=== PATIENT | male | born 1970 | race Caucasian/White ===

== ENCOUNTER → 2017-09-18 | Emergency (ER) | payer OTHER ==
[~2017-09-18] VITALS: Ht 170.2 cm; Wt 84.0 kg
[~2017-09-18] MED LIST: folic acid 1mg/0.2ml inj IV ONE; normal saline 1000ML IV soln IVB ONE; thiamine 100mg/ml 2ml inj. IV ONE
[2017-09-18 11:43] VITALS: BP 138/92
[2017-09-18 12:21] LABS: BASOPHILS # (AUTO) 0.1 X10'3 (0-0.2); EOSINOPHILS # (AUTO) 0.1 X10'3 (0-0.9); HEMATOCRIT 38.4 % (42.0-52.0); LYMPHOCYTES # (AUTO) 1.1 X10'3 (1.1-4.8); LYMPHOCYTES % (AUTO) 13.8 % (21-51); MEAN CORPUSCULAR HEMOGLOBIN 32.5 PG (27.0-31.0); MEAN CORPUSCULAR HGB CONC 33.9 % (33.0-36.5); MEAN CORPUSCULAR VOLUME 95.9 FL (78-98); MEAN PLATELET VOLUME 5.8 FL (7.4-10.4); MONOCYTES % (AUTO) 12.9 % (2-12); NEUTROPHILS # (AUTO) 5.6 X10'3 (1.8-7.7); NEUTROPHILS % (AUTO) 71.3 % (42-75); PLATELET COUNT 174 X10'3 (140-440); RED CELL DISTRIBUTION WIDTH 13.9 % (11.5-14.5); WHITE BLOOD COUNT 7.8 X10'3 (4.5-11.0)
[2017-09-18 12:30] LABS: INR 1.1 INR; PROTHROMBIN TIME 10.9 SECONDS (9.0-12.0)
[2017-09-18 12:35] LABS: ALANINE AMINOTRANSFERASE 14 U/L (12-78); ALBUMIN 3.3 G/DL (3.4-5.0); ALBUMIN/GLOBULIN RATIO 0.5 (1.1-1.5); ALKALINE PHOSPHATASE 75 IU/L (46-116); ANION GAP 9 (8-16); ASPARTATE AMINO TRANSFERASE 62 U/L (10-37); BILIRUBIN,TOTAL 0.3 MG/DL (0.1-1.0); BLOOD UREA NITROGEN 2 MG/DL (7-18); BUN/CREATININE RATIO 2.9 (5.4-32.0); CALCIUM 8.3 MG/DL (8.5-10.1); CHLORIDE 91 MMOL/L (99-107); GLUCOSE 116 MG/DL (70-104); POTASSIUM 4.4 MMOL/L (3.5-5.1); SODIUM 129 MMOL/L (135-145); TOTAL CARBON DIOXIDE 29.4 MMOL/L (24-32); TOTAL PROTEIN 9.5 G/DL (6.4-8.2); eGFR > 90 ML/MIN
[2017-09-18 12:36] LABS: ETHANOL 0.443 GM/DL (0.0-0.010)
[2017-09-18 12:39] LABS: CLARITY,URINE Clear (Clear); COLOR,URINE Yellow (Yellow); GLUCOSE, URINE Negative (Neg); KETONES,URINE Negative (Neg); LEUKOCYTE ESTERASE ,URINE Negative (Neg); NITRITES, URINE Negative (Neg); OCCULT BLOOD,URINE Trace (Neg); PROTEIN,URINE 30 mg/dl (Neg)
[2017-09-18 12:44] LABS: UA COLLECTION TYPE CLN CATCH MIDSTREAM
[2017-09-18 12:45] LABS: BACTERIA,URINE NONE SEEN /HPF (Neg); MUCUS STRANDS NONE SEEN /LPF (Neg); RBC,URINE NONE SEEN /HPF (0-2); SQUAMOUS EPITHELIAL CELL,UR FEW /LPF (FEW); WBC,URINE NONE SEEN /HPF (0-4)
[2017-09-18 12:50] LABS: URINE AMPHETAMINE SCREEN NEGATIVE (Neg); URINE BARBITUATE SCREEN NEGATIVE (Neg); URINE BENZODIAZEPINES SCREEN NEGATIVE (Neg); URINE CANNABINOID SCREEN NEGATIVE (Neg); URINE COCAINE SCREEN NEGATIVE (Neg); URINE METHADONE SCREEN NEGATIVE (Neg); URINE OPIATE SCREEN NEGATIVE (Neg); URINE PHENCYCLIDINE SCREEN NEGATIVE (Neg)
== END | disposition home or self-care (01) ==
LOC: ER 11:36
DX: E86.0 Dehydration (principal); E87.1 Hypo-osmolality and hyponatremia; F10.129 Alcohol abuse with intoxication, unspecified; Y90.9 Presence of alcohol in blood, level not specified
CPT/HCPCS: 36415; 80053; 80305; 80320; 81001; 82948; 85025; 85610; 96361; 96374; 96375; 99284; J3411; J3490; J7030

== ENCOUNTER 2020-07-27 15:14 | Emergency (ER) | payer OTHER ==
[~2020-07-27] VITALS: Ht 180.3 cm; Wt 86.0 kg
[2020-07-27] MEDS ORDERED: normal saline 1000ML IV soln IVB ONE (16:35)
[2020-07-27] MEDS ORDERED: LORazepam 2 mg/ml vial IV ONE (16:35)
[2020-07-27 17:08] LABS: BASOPHILS # (AUTO) 0.1 X10'3 (0-0.2); BASOPHILS % (AUTO) 1.2 % (0-1); EOSINOPHILS # (AUTO) 0.1 X10'3 (0-0.9); EOSINOPHILS % (AUTO) 1.5 % (0-6); HEMATOCRIT 36.8 % (42.0-52.0); HEMOGLOBIN 12.5 g/dl (14.0-17.9); LYMPHOCYTES # (AUTO) 1.2 X10'3 (1.1-4.8); LYMPHOCYTES % (AUTO) 21.4 % (21-51); MEAN CORPUSCULAR HEMOGLOBIN 33.7 PG (27.0-31.0); MEAN CORPUSCULAR VOLUME 98.9 FL (78-98); MEAN PLATELET VOLUME 6.1 FL (7.4-10.4); MONOCYTES # (AUTO) 0.5 X10'3 (0-0.9); MONOCYTES % (AUTO) 9.2 % (2-12); NEUTROPHILS # (AUTO) 3.9 X10'3 (1.8-7.7); NEUTROPHILS % (AUTO) 66.7 % (42-75); PLATELET COUNT 174 X10'3 (140-440); RED BLOOD COUNT 3.72 X10'6 (4.70-6.10); RED CELL DISTRIBUTION WIDTH 14.5 % (11.5-14.5); WHITE BLOOD COUNT 5.8 X10'3 (4.5-11.0)
[2020-07-27 17:20] LABS: ALANINE AMINOTRANSFERASE 14 U/L (12-78); ALBUMIN 3.2 G/DL (3.4-5.0); ALBUMIN/GLOBULIN RATIO 0.5 (1.1-1.5); ALKALINE PHOSPHATASE 75 IU/L (46-116); ANION GAP 8 (8-16); ASPARTATE AMINO TRANSFERASE 49 U/L (10-37); BILIRUBIN,TOTAL 0.3 MG/DL (0.1-1.0); BLOOD UREA NITROGEN 5 MG/DL (7-18); BUN/CREATININE RATIO 7.1 (5.4-32.0); CALCIUM 8.5 MG/DL (8.5-10.1); CHLORIDE 100 MMOL/L (99-107); GLUCOSE 108 MG/DL (70-104); SODIUM 136 MMOL/L (135-145); TOTAL CARBON DIOXIDE 28.3 MMOL/L (24-32); TOTAL PROTEIN 9.1 G/DL (6.4-8.2); eGFR > 90 ML/MIN
[2020-07-27 17:21] LABS: ETHANOL 0.396 GM/DL (0.0-0.010); POTASSIUM 3.8 MMOL/L (3.5-5.1)
[2020-07-27 17:25] LABS: URINE AMPHETAMINE SCREEN NEGATIVE (Neg); URINE BARBITUATE SCREEN NEGATIVE (Neg); URINE BENZODIAZEPINES SCREEN NEGATIVE (Neg); URINE CANNABINOID SCREEN NEGATIVE (Neg); URINE COCAINE SCREEN NEGATIVE (Neg); URINE METHADONE SCREEN NEGATIVE (Neg); URINE OPIATE SCREEN NEGATIVE (Neg); URINE PHENCYCLIDINE SCREEN NEGATIVE (Neg)
[2020-07-27 19:38] VITALS: BP 131/94
== END 2020-07-27 19:41 | disposition home or self-care (01) ==
LOC: ER 15:15
DX: S46.011A Strain of muscle(s) and tendon(s) of the rotator cuff of right shoulder, initial encounter (principal); M25.511 Pain in right shoulder; Z72.89 Other problems related to lifestyle; Z60.2 Problems related to living alone; X58.XXXA Exposure to other specified factors, initial encounter; Y93.89 Activity, other specified; Y92.89 Other specified places as the place of occurrence of the external cause; Y99.8 Other external cause status
CPT/HCPCS: 36415; 73030; 80053; 80305; 80320; 85025; 93005; 96361; 96374; 99285; J2060; J7030

== ENCOUNTER 2020-12-03 08:51 | Inpatient (IN) | payer MEDICAID ==
[~2020-12-03] VITALS: Ht 180.3 cm; Wt 82.6 kg
[2020-12-03] VITALS (18 sets, daily range): BP systolic 102–152; BP diastolic 68–86
[~2020-12-03 08:51] MED LIST changes: +HYDR-3973 PO; +MESSAGE TO NURSING PO ONE; +ceFAZolin 2gm in dextrose, iso 50 ML IV ONE; +famotidine 20mg tablet PO ONE; -folic acid 1mg/0.2ml inj IV ONE; -normal saline 1000ML IV soln IVB ONE; +ringers solution, lacted 1,000 ML IV SCH; -thiamine 100mg/ml 2ml inj. IV ONE; +tranexamic acid 650mg tablet PO ONE; +vancomycin 1,500 MG in NS 300ml IV soln IV ONE
[2020-12-03 10:28] LABS: BASOPHILS % (AUTO) 0.3 % (0-1); EOSINOPHILS % (AUTO) 0.2 % (0-6); LYMPHOCYTES # (AUTO) 0.7 X10'3 (1.1-4.8); LYMPHOCYTES % (AUTO) 11.2 % (21-51); MEAN CORPUSCULAR HEMOGLOBIN 31.6 PG (27.0-31.0); MEAN CORPUSCULAR VOLUME 92.8 FL (78-98); MEAN PLATELET VOLUME 6.9 FL (7.4-10.4); MONOCYTES # (AUTO) 0.8 X10'3 (0-0.9); MONOCYTES % (AUTO) 12.3 % (2-12); NEUTROPHILS # (AUTO) 4.7 X10'3 (1.8-7.7); PRE OP HEMATOCRIT 39.1 % (42.0-52.0); PRE OP HEMOGLOBIN 13.3 g/dL (14.0-17.9); PRE OP PLATELET COUNT 153 X10'3 (140-440); RED BLOOD COUNT 4.21 X10'6 (4.70-6.10); RED CELL DISTRIBUTION WIDTH 13.9 % (11.5-14.5)
[2020-12-03] MEDS ORDERED: IBUP-1985 PO (10:36)
[2020-12-03 10:43] LABS: ALBUMIN 3.4 G/DL (3.4-5.0); ALBUMIN/GLOBULIN RATIO 0.6 (1.1-1.5); ALKALINE PHOSPHATASE 65 IU/L (46-116); BLOOD UREA NITROGEN 6 MG/DL (7-18); BUN/CREATININE RATIO 8.5 (5.4-32.0); CALCIUM 8.8 MG/DL (8.5-10.1); CHLORIDE 104 MMOL/L (99-107); CREATININE 0.71 MG/DL (0.60-1.10); PRE OP ALT 18 U/L (30-65); PRE OP ANION GAP 9 (8-16); PRE OP AST 49 U/L (10-37); PRE OP BILIRUB, TOTAL 0.5 MG/DL (0.0-1.0); PRE OP GLUCOSE 108 MG/DL (70-104); PRE OP POTASSIUM 3.9 MMOL/L (3.4-5.1); PRE OP SODIUM 141 MMOL/L (135-145); TOTAL CARBON DIOXIDE 27.7 MMOL/L (24-32); TOTAL PROTEIN 8.7 G/DL (6.4-8.2); eGFR > 90 ML/MIN
[2020-12-03] MEDS ORDERED: chlordiazePOXIDE 25mg capsule PO ONE (10:51)
[2020-12-03 11:21] LABS: PARTIAL THROMBOPLASTIN TIME 27 SECONDS (22-32); PRE OP INR 1.1 INR; PRE OP PROTIME 11.2 SECONDS (9.0-12.0)
--- NOTE | 2020-12-03 12:07 | NUR ---
VERBAL COVID SCREEN NEG Addendum: 12/03/20 at 1218 by Michelle Minaya RN Amended: Links added.
[2020-12-03] MEDS ORDERED: propofol inj 20 ML IV ONE (13:21)
[2020-12-03] MEDS ORDERED: fentaNYL/PF 50MCG/1 ML 2ML syringe ONE (13:23)
[2020-12-03] MEDS ORDERED: MIDAZolam 1 MG/ML 5ML VIAL ONE (13:23)
[2020-12-03] MEDS ORDERED: sevoflurane 250ml liquid IH ONE (13:26)
[2020-12-03] MEDS ORDERED: ROPIVAcaine 0.5% (5mg/ml) 30ml vial ONE ×2 (13:35→15:06)
[2020-12-03] MEDS ORDERED: ROPIVAcaine 0.2%/PF PUMP/bolus 550 ML INTERSCALE SCH (14:45)
[2020-12-03] MEDS ORDERED: ringers solution, lacted 1,000 ML IV SCH (14:45)
[2020-12-03] MEDS ORDERED: meperidine/PF 25mg/ml syringe IV PRN ×3 (14:45)
[2020-12-03] MEDS ORDERED: proCHLORperazine 10 MG/2 ml inj IV PRN (14:45)
[2020-12-03] MEDS ORDERED: ROPIVAcaine 0.2% (10 MG/5 ML) BOLUS INJECTION INTERSCALE PRN (14:45)
[2020-12-03] MEDS ORDERED: morphine 2 MG/ML inj. syringe IV PRN (14:45)
[2020-12-03] MEDS ORDERED: ondansetron/PF 4mg/2ml inj IV PRN ×2 (14:45→16:10)
[2020-12-03] MEDS ORDERED: morphine 4 MG/ML inj SYRINge IV PRN (14:45)
[2020-12-03] MEDS ORDERED: ketorolac trometh. 30mg/ml inj. ONE (15:06)
[2020-12-03] MEDS ORDERED: bisacodyl 10mg suppository rectal RC PRN (16:10)
[2020-12-03] MEDS ORDERED: magnesium hydroxide 30ml (MOM) UD suspension PO PRN (16:10)
[2020-12-03] MEDS ORDERED: diphenhydrAMINE 25mg capsule PO PRN ×2 (16:10)
[2020-12-03] MEDS ORDERED: HYDROmorphone inj. 0.5 MG/0.5 ML DISP.SYRIN IV PRN (16:10)
[2020-12-03] MEDS ORDERED: oxyCODONE IR 5mg (immed. release) tablet PO PRN ×2 (16:10)
[2020-12-03] MEDS ORDERED: HYDROmorphone 1 mg/ml syringe IV PRN (16:10)
[2020-12-03] MEDS ORDERED: acetaminophen 325mg tablet PO PRN (16:10)
--- NOTE | 2020-12-03 16:17 | NUR ---
Received from OR via BED, accompanied by Anesthesiologist and report given by Anesthesiologist. PATIENT IS ASLEEP, V.S. STABLE, POWDER PACK ON RIGHT SHOULDER AND SLING ON LEFT ARM WITH RADIAL PULSE PRESENT, WARM RIGHT FINGERS WITH CAP REFILL OF 2-3SEC, PIV ON RIGHT WRIST LR RUNNING AT 100ML/HR, O2 SAT 100% WITH A MASK WITH 02 10L, BED LOW, RAILS UP, WILL MONITOR. Addendum: 12/03/20 at 1640 by Sophy Ferro RN Amended: Links added.
[2020-12-03] MEDS ORDERED: LORazepam 2 mg/ml vial IV PRN (17:00)
[2020-12-03] MEDS ORDERED: dextrose 50%-water 50ml dispensing syringe IV PRN (17:00)
[2020-12-03] MEDS ORDERED: haloperidol 5mg tablet PO PRN (17:00)
[2020-12-03] MEDS ORDERED: haloperidol lactate 5mg/ml inj IM PRN (17:00)
[2020-12-03] MEDS ORDERED: thiamine 100mg/ml 2ml inj. IV ONE (17:00)
--- NOTE | 2020-12-03 17:04 | NUR ---
Spoke with Dr. Higginbotham regarding ETOH protocol for patient and he said he was okay with it being ordered. Orders in the computer.
--- NOTE | 2020-12-03 17:33 | NUR ---
Patient in room PAS IN 902. I have received report from Sophy ROMANO and had the opportunity to ask questions and assume patient care.
--- NOTE | 2020-12-03 17:56 | NUR ---
Patient arrived from OR in hospital bed. LR running @100 mls/hr on Q at 2. Patient is still numb, not able to move hand, radial pulses bilaterally are a 2+. Patient is not complaining of any pain. Mild tremors noted on assessment and patient is tachycardic with a heart rate in the 100s. ETOH protocol ordered.
--- NOTE | 2020-12-03 17:57 | NUR ---
Report called to receiving nurse ADENIKE. Transferred via BED WITH NO BELONGINGS. PATIENT STATES HIS SISTER TOOK HIS BELONGINGS WITH HER. PATIENT IS AWAKE, STILL A LITTLE DROWSY, HAS POWDER PACK ON RIGHT SHOUDLER AND A SLING ON RIGHT ARM, DRESSING CDI, DENIES PAIN, STATES HIS RIGHT ARM IS STILL NUMB AND UNABLE TO MOVE RIGHT FINGERS, RADIAL PULSE ON RIGHT WRIST PRESENT, FINGERS WARM AND CAP-REFILL 2-3SEC, NO TREMOR NOTED AT THIS TIME. PIV ON LEFT WRIST LR RUNNING AT 100ML/HR, >92% O2 SAT ON ROOM AIR, RECEIVING NURSE AT BEDSIDE IN THE ROOM, BED IS LOW, RAILS UP. Addendum: 12/03/20 at 1807 by Sophy Ferro RN Amended: Links added.
--- NOTE | 2020-12-03 18:02 | NUR ---
Called and left message with Dr. Higginbotham to ask about the patient receiving beer with meals. Awaiting call back.
--- NOTE | 2020-12-03 18:23 | NUR ---
Problems reprioritized. Patient report given, questions answered & plan of care reviewed with Reyna ROMANO.
[2020-12-03] MEDS ORDERED: vancomycin/NS 1 GM ADD-VANTAGE 250 ML IV SCH (20:00)
[2020-12-03] MEDS: potassium cl 20mEq in 1/2 NS 1,000 ML IV SCH ×2 (20:00→23:35)
[2020-12-03] MEDS ORDERED: thiamine inj. 100 MG in normal saline 100ml IV soln 100 ML IV ONE (20:00)
[2020-12-03] MEDS ORDERED: sennosides 8.6mg tablet PO SCH (21:00)
[2020-12-03] MEDS: acetaminophen 325mg tablet PO SCH (21:21)
[2020-12-03] MEDS: ceFAZolin/D5W- 1GM premix 50 ML IV SCH (23:35)
[2020-12-04] MEDS: acetaminophen 325mg tablet PO SCH ×3 (01:55→09:38)
[2020-12-04 02:00] VITALS: BP 126/71
[2020-12-04 06:00] VITALS: BP 125/75
--- NOTE | 2020-12-04 06:13 | NUR ---
Report given to Anh ROMANO and Marian ROMANO.
--- NOTE | 2020-12-04 06:40 | NUR ---
Patient in room ORTHO 4014. I have received report from jimmie locke and had the opportunity to ask questions and assume patient care.
--- NOTE | 2020-12-04 07:04 | NUR ---
Patient in room ORTHO 4014A. I have received report from JUAN ANTONIO Orellana and had the opportunity to ask questions and assume patient care. Luis Alfredo Kamara RN will provide care for pt. I will monitor and assist when needed.
[2020-12-04] MEDS: potassium cl 20mEq in 1/2 NS 1,000 ML IV SCH (08:10)
[2020-12-04] MEDS: ceFAZolin/D5W- 1GM premix 50 ML IV SCH (08:15)
[2020-12-04 08:20] LABS: BASOPHILS % (AUTO) 0.2 % (0-1); EOSINOPHILS % (AUTO) 0.6 % (0-6); HEMATOCRIT 34.8 % (42.0-52.0); HEMOGLOBIN 11.8 g/dl (14.0-17.9); LYMPHOCYTES # (AUTO) 1.4 X10'3 (1.1-4.8); LYMPHOCYTES % (AUTO) 18.7 % (21-51); MEAN CORPUSCULAR HGB CONC 33.9 g/dL (33.0-36.5); MEAN CORPUSCULAR VOLUME 94.6 FL (78-98); MEAN PLATELET VOLUME 7.6 FL (7.4-10.4); MONOCYTES # (AUTO) 0.9 X10'3 (0-0.9); MONOCYTES % (AUTO) 11.7 % (2-12); NEUTROPHILS # (AUTO) 5.2 X10'3 (1.8-7.7); NEUTROPHILS % (AUTO) 68.8 % (42-75); PLATELET COUNT 140 X10'3 (140-440); RED BLOOD COUNT 3.68 X10'6 (4.70-6.10); RED CELL DISTRIBUTION WIDTH 13.6 % (11.5-14.5); WHITE BLOOD COUNT 7.6 X10'3 (4.5-11.0)
[2020-12-04] MEDS ORDERED: aspirin 325mg tablet PO SCH (08:30)
[2020-12-04 08:41] LABS: ANION GAP 11 (8-16); CHLORIDE 103 MMOL/L (99-107); POTASSIUM 3.7 MMOL/L (3.5-5.1); SODIUM 138 MMOL/L (135-145); TOTAL CARBON DIOXIDE 24.4 MMOL/L (24-32)
[2020-12-04 10:00] VITALS: BP 124/76
[2020-12-04] MEDS ORDERED: ASPI-1 PO (11:51)
--- NOTE | 2020-12-04 12:03 | NUR ---
Student Medication Administration: For this medication-pass time frame [id number], all medications were reviewed,administered and documented per hospital policy by Rodger Davis. Student documentation: I have reviewed and agree with all interventions, assessments performed and documented by Maddy.
--- NOTE | 2020-12-04 13:04 | NUR ---
Pt discharged at 1304. Pt belongings sent with pt. All questions/concerns reviewed with patient. Iv removed, no complications. Encouraged pt to follow up with PCP about ETOH assistance. Pt stated he will follow up with PCP and that he is interested in quitting drinking. Pt discharged in stable condition with sister in private vehicle.
--- NOTE | 2020-12-04 14:33 | NUR ---
ORIENTEE documentation: I have reviewed and agree with all interventions, assessments performed and documented by JUAN ANTONIO SHRESTHA. PT DC IN STABLE CONDITION.
--- NOTE | 2020-12-05 15:09 | NUR ---
CASE MANAGEMENT DISCHARGE FOLLOW UP: Spoke with pt via telephone. Reports that he is feeling pretty good, states pain level is 1/10, dressing is CDI, pain pump in place and effective; denies CP, SOB/dyspnea, fever/chills. Verbalizes understanding of s/sx requiring further evaluation/emergent assistance. Verbalizes understanding of new and current medications. Verbalizes compliance with MD discharge instructions, wearing cool packs as directed to help with pain. Verbalizes understanding of the importance in making/keeping follow-up appointments, has appointment scheduled with Dr Higginbotham. States no further questions/concerns at this time.
[2020-12-05] MEDS ORDERED: acetaminophen 325mg tablet PO PRN (16:10)
[2020-12-05] MEDS ORDERED: LORazepam 1 MG tablet PO PRN (17:00)
[2020-12-05] MEDS ORDERED: LORazepam 2 mg/ml vial IV PRN (17:00)
[2020-12-07] MEDS ORDERED: LORazepam 1 MG tablet PO PRN (17:00)
[2020-12-07] MEDS ORDERED: LORazepam 2 mg/ml vial IV PRN (17:00)
== END 2020-12-04 13:05 | disposition home or self-care (01) | DRG 322 ==
LOC: UNDOADMIN 08:51 → PAS IN 08:51 → EDSTATUS 11:45 → PAS IN 16:06 → ORTHO 4S 18:17
PROVIDERS: ADMIT Orthopaedic Surgery; ATTEND Orthopaedic Surgery
PROC: 0LS30ZZ Reposition Right Upper Arm Tendon, Open Approach (ICD-10-PCS; 2020-12-03)
PROC: 3E0T3BZ Introduction of Anesthetic Agent into Peripheral Nerves and Plexi, Percutaneous Approach (ICD-10-PCS; 2020-12-03)
PROC: 0RRJ0JZ Replacement of Right Shoulder Joint with Synthetic Substitute, Open Approach (ICD-10-PCS; principal; 2020-12-03 13:26)
DX: M19.011 Primary osteoarthritis, right shoulder (principal); S42.141A Displaced fracture of glenoid cavity of scapula, right shoulder, initial encounter for closed fracture; D62 Acute posthemorrhagic anemia; M75.21 Bicipital tendinitis, right shoulder; X58.XXXA Exposure to other specified factors, initial encounter; Z20.822 Contact with and (suspected) exposure to COVID-19; M65.811 Other synovitis and tenosynovitis, right shoulder; S42.209A Unspecified fracture of upper end of unspecified humerus, initial encounter for closed fracture; S43.024A Posterior dislocation of right humerus, initial encounter; Y93.89 Activity, other specified; Y92.89 Other specified places as the place of occurrence of the external cause; Y99.8 Other external cause status
CPT/HCPCS: 36415; 80051; 80053; 82948; 85025; 85610; 85730; 87081; 87426; 93005; 97116; 97161; 97530; A4565; A4618; A6449; A7000; C1713; C1776; G0378; J0690; J1885; J2250; J2704; J2795; J3010; J3370; J3411; J3480; J7040; J7120